=== PATIENT | female | born 1985 | race Caucasian/White ===

== ENCOUNTER 2019-04-12 01:17 | Inpatient (IN) | payer BC, SELFPAY ==
[2019-04-12] VITALS (11 sets, daily range): BP systolic 102–137; BP diastolic 55–82; PULSE 67–96; RESP 14–16; TEMP 36.4–37.2; O2SAT 97–100; BMI 23.2; BMI 22.6; BMI 22.7
--- NOTE | 2019-04-12 01:30 | CT_ITS ---
STUDY: CT ABDOMEN AND PELVIS WITHOUT CONTRAST REASON FOR EXAM: Female, 33 years old. Right flank pain. Dysuria. RADIATION DOSAGE (If Supplied By Facility): CTDIvol = ( 6.11 ) mGy, DLP = ( 282.52 ) mGycm TECHNIQUE: Transaxial images were obtained from the dome of the diaphragm to the symphysis pubis without oral contrast, and without intravenous contrast. Sagittal and coronal images were reconstructed. Individualized dose optimization techniques were used for this CT. COMPARISON: None. FINDINGS: Mild bibasilar atelectasis The visualized portions of the heart are within normal limits. Normal liver. Normal gallbladder and extrahepatic biliary system. Normal spleen. Normal pancreas. Normal bilateral adrenal glands. Hypoattenuated lesion in the right lower renal pole measuring near water density. To millimeter calculus in the right lower renal pelvis. 2 mm calculus in the left lower renal pelvis. No hydronephrosis. No ureteral calculus. Normal visualized stomach. Normal small intestine. Normal colon. The appendix is visualized and appears normal. Normal abdominal aorta. Normal inferior vena cava. Normal retroperitoneum. Normal urinary bladder. Normal reproductive structures. Trace amount of free fluid in the pelvic cul-de-sac. Normal abdominal wall. Normal osseous structures. CT/Abdomen/Pelvis without Cont IMPRESSION: 1. Nonobstructing bilateral renal calculi measuring 2 mm. 2. Simple appearing right lower renal pole cyst. 3. Small amount of free fluid in pelvic cul-de-sac. Electronically Signed: Cornelius Houston MD at 4:06 EST Tel , Service support ,
--- NOTE | 2019-04-12 01:30 | ED.DCSUM_ITS ---
History of Present Illness Chief Complaint: Flank Pain Narrative: Patient is a 33-year-old female who presents with acute onset right flank pain. This began about 2 hours ago. She rates it as severe 8 out of 10. She is unable to really characterize the pain. It is nonradiating. No anterior abdominal pain. She notes urinary frequency but denies dysuria hematuria. She is concerned she may have a kidney infection. No recent illness. No fevers cough chest pain shortness of breath. No diarrhea. She denies medical history or history of abdominal surgeries. Past Medical History - Allergies and Home Meds Allergies/Adverse Reactions: Allergies codeine Allergy (Verified 04/12/19 01:19) Itching Primary Care Physician: Rustam Garland MD [Primary Care Provider] - Past Medical History: None Smoking Status: Never smoker Review of Systems All systems negative except as indicated General: Denies: Fever Eyes: Denies: Visual changes - bilaterally ENT: Denies: Bilateral ear pain Cardiovascular: Denies: Chest pain Respiratory: Denies: Dyspnea Gastrointestinal: Reports: Nausea, Vomiting. Denies: Abdominal pain Genitourinary: Reports: Frequency, - - Right flank pain. Denies: Dysuria, Hematuria Skin: Denies: Rash Neurological: Denies: Headache Hematologic: Denies: Easy bruising Allergy: Denies: Uticaria Physical Exam Vital Signs/Narrative: Vital Signs Temp Pulse Resp BP Pulse Ox 04/12/19 01:22 97.5 F L 84 16 137/82 H 100 04/12/19 01:18 97.5 F L 84 16 137/82 H 100 Inital Vital Signs reviewed: Yes General: Well nourished Head: Normocephalic Eyes: EOMI ENT: Moist mucous membranes Neck: Supple Cardiovascular: Regular rate, Regular rhythm Respiratory: No distress, CTA bilaterally Abdomen: Soft, Nontender, Nondistended Back: Nontender. Negative for: CVA tenderness Extremities: Nontender Skin: Normal color Neurological: Alert Psychological: Normal affect Diagnostic/Tx/Re-eval Impressions Abdomen/Pelvis CT 04/12/19 01:30 IMPRESSION: 1. Nonobstructing bilateral renal calculi measuring 2 mm. 2. Simple appearing right lower renal pole cyst. 3. Small amount of free fluid in pelvic cul-de-sac. Electronically Signed: Cornelius Houston MD at 4:06 EST Tel , Service support , 04/12/19 01:30 Abdomen/Pelvis without Cont [CT] Stat Laboratory Results 04/12/19 04/12/19 04/12/19 01:35 01:35 01:35 WBC 18.9 H RBC 4.16 L Hgb 12.2 Hct 37.6 MCV 90.4 MCH 29.3 MCHC 32.4 RDW Std Deviation 47.1 H RDW Coeff of Amparo 14.2 Plt Count 334 MPV 9.1 Immature Gran % (Auto) 0.500 Neut % (Auto) 70.6 H Lymph % (Auto) 18.3 L [place] % (Auto) 7.1 Eos % (Auto) 3.1 Baso % (Auto) 0.4 Absolute Neuts (auto) 13.3 H Absolute Lymphs (auto) 3.46 Nucleated RBC % 0 Sodium 144 Potassium 3.4 L Chloride 109 H Carbon Dioxide 29.0 Anion Gap 6 BUN 8 Creatinine 0.62 Estim Creat Clear Calc 98.30 Est GFR (MDRD) Af Amer 141 Est GFR (MDRD) Non-Af 117 BUN/Creatinine Ratio 12.8 Glucose 81 Calcium 8.6 Serum , Qual Urine Color Yellow Urine Clarity Sl. Cloudy Urine pH 6.0 Ur Specific [place] 1.020 Urine Protein 15 H Urine Glucose (UA) Normal Urine Ketones Negative Urine Occult Blood 10 H Urine Nitrite Negative Urine Bilirubin Negative Urine Urobilinogen Normal Ur Leukocyte Esterase 25 H Urine RBC 0-5 SEEN Urine WBC 5-10 SEEN Ur Squamous Epith Cells 50-100 SEEN Urine Bacteria 0 SEEN Urine Mucus 0 SEEN 04/12/19 01:35 WBC RBC Hgb Hct MCV MCH MCHC RDW Std Deviation RDW Coeff of Amparo Plt Count MPV Immature Gran % (Auto) Neut % (Auto) Lymph % (Auto) [place] % (Auto) Eos % (Auto) Baso % (Auto) Absolute Neuts (auto) Absolute Lymphs (auto) Nucleated RBC % Sodium Potassium Chloride Carbon Dioxide Anion Gap BUN Creatinine Estim Creat Clear Calc Est GFR (MDRD) Af Amer Est GFR (MDRD) Non-Af BUN/Creatinine Ratio Glucose Calcium Serum , Qual NEGATIVE Urine Color Urine Clarity Urine pH Ur Specific [place] Urine Protein Urine Glucose (UA) Urine Ketones Urine Occult Blood Urine Nitrite Urine Bilirubin Urine Urobilinogen Ur Leukocyte Esterase Urine RBC Urine WBC Ur Squamous Epith Cells Urine Bacteria Urine Mucus - Medical Decision Making Patient was initially treated with IV fluids, Toradol, Zofran. Her pain did transiently improve from an 8 out of 10 down to 4 out of 10 and she was able to fall asleep. Laboratory studies as above notable for leukocytosis with a white count of 18.9. Urinalysis is contaminated. This was sent for culture. negative. Ct of the abdomen and pelvis shows a small amount of free fluid in the pelvis as well as bilateral nonobstructive renal calculi. At this time the etiology of her symptoms is unclear. She did require repeat analgesics due to recurrent worsening pain. She was given morphine. She was empirically covered with Rocephin for potential pyelonephritis. I spoke to the hospitalist who agrees to admit. We will also try to repeat a urinalysis for a better specimen. Patient admitted. ED Disposition - Plan for ED Patient: Disposition: Acute Care Hospital [facility] Diagnosis: Flank pain, Leukocytosis, Vomiting Referrals: Rustam Garland MD [Primary Care Provider] -
[2019-04-12] MEDS: 0.9% Normal Saline 1,000 ML 1000 ML IV (01:43)
[2019-04-12] MEDS: Ondansetron 4 MG/2 ML Vial IV ×2 (01:43→07:30)
[2019-04-12] MEDS: Ketorolac 30 MG/ML Syringe IV (01:43)
[2019-04-12 01:47] LABS: Bacteria 0 SEEN /hpf (None Seen); Mucous, Urine 0 SEEN /hpf (<or=2+)
[2019-04-12 01:49] LABS: Absolute Lymphocyte Count 3.46 X10^3/uL (0.83-4.51); Absolute Neutrophil Count 13.3 X10^3/uL (2.0-7.7); Basophil# 0.08 X10^3/uL; Basophil% 0.4 % (0-1); Color, Urine Yellow (Yellow); Eosinophil# 0.58 X10^3/uL; Eosinophils% 3.1 % (0-5); Glucose, Dipstick Normal (Normal); Hematocrit 37.6 % (37-47); Hemoglobin 12.2 g/dL (12.0-15.0); Ketone-Dipstick Negative (Negative); Leukocyte Esterase-Dipstick 25 /ul (Negative); Lymphocyte # 3.46 X10^3/ul (4.0); Lymphocyte % 18.3 % (19-41); Mean Corp Hgb Conc 32.4 g/dL (32-36); Mean Corpuscular Hgb 29.3 pg (27.0-32.0); Mean Corpuscular Volume 90.4 fL (81-99); Mean Platelet Vol. 9.1 fl (6.2-12.0); Monocyte# 1.34 X10^3/uL; Monocyte% 7.1 % (0-10); NRBC Flagged by Analyzer 0 % (0-5); Neutrophil # 13.31 X10^3/uL (2.7-7.7); Neutrophil % 70.6 % (47-70); Nitrite-Dipstick Negative (Negative); Occult Blood-Urine 10 /ul (Negative); Platelet Count 334 K/mm3 (150-450); Protein-Dipstick 15 mg/dl (Negative); RBC Distribution Width CV 14.2 % (11.6-14.6); RBC Distribution Width SD 47.1 fl (35.1-43.9); Red Blood Count 4.16 M/mm3 (4.2-5.4); Urine Bilirubin Dipstick Negative (Negative); Urine Clarity Sl. Cloudy (Clear); Urine Urobilinogen Normal (Normal); White Blood Count 18.9 K/mm3 (4.4-11.0)
[2019-04-12 02:09] LABS: Red Blood Cells-Urine 0-5 SEEN /hpf (0-5); Squamous Epithelial Cells - UA 50-100 SEEN /hpf (5-10); White Blood Cells 5-10 SEEN /hpf (0-5)
[2019-04-12 02:10] LABS: Anion Gap 6 (5-15); BUN 8 mg/dL (7-18); BUN/Creat Ratio 12.8 RATIO (10-20); Calcium,Total 8.6 mg/dL (8.5-10.1); Chloride 109 mmol/L (98-107); Creatinine, Serum 0.62 mg/dL (0.55-1.02); EST Glomerular Filtration Rate 117 mL/min (>60); Est Glom Filt Rate - Afr Amer 141 mL/min (>60); Glucose 81 mg/dL (74-106); Potassium 3.4 mmol/L (3.5-5.1); Sodium Level 144 mmol/L (136-145)
[2019-04-12 02:16] LABS: Pregnancy, Serum, hCG Quali. NEGATIVE Negative (0-9 Nonpreg)
[2019-04-12 02:17] LABS: Internal QC Validated? YES +Cl - CLEAR BKGD
[2019-04-12] MEDS: Morphine 4 MG/ML Syringe IV (04:10)
[2019-04-12] MEDS: Ceftriaxone 1 GM/50 ML BAG IV (04:21)
--- NOTE | 2019-04-12 04:29 | PCM.HP.STD ---
Problem List (1) Acute pyelonephritis Status: Acute History of Present Illness Date of Admission: 04/12/19 Chief Complaint: right flank pain The patient is a 33 year old F with a significant history of pyelonephritis who presented to emergency department with progressively worsening excruciating aching right flank pain that started a day before presentation and progressed to the point that it woke her up from her sleep. Her pain is nonradiating. She denies any aggravating or ameliorating factors. At the emergency department she received some pain medication to help with her pain. Associated with her symptoms is nausea and vomiting. Further she has increased urinary frequency and urgency. She denies dysuria. Past Medical History Medical History: Medical History (Last Reviewed 04/12/19 @ 06:56 by Boyd Dawson MD) Pyelonephritis N12 Allergies codeine Allergy (Verified 04/12/19 01:19) Itching Home Medications: Ambulatory Orders Medication Instructions Recorded NK 04/12/19 Surgical History: no surgical history Lives: Spouse/ Significant Other Smoking Status: Current every day smoker Alcohol: None - *Family History Maternal Family History: Family History (Last Reviewed 04/12/19 @ 06:56 by Boyd Dawson MD) Mother Breast cancer Father Prostate cancer Review of Systems Constitutional: Denies: Chills, Fever, Weight Change HEENT: Denies: Head Aches, Sinus Congestion, Sinus Drainage Cardiovascular: Denies: Chest Pain, Palpitations Respiratory: Denies: Cough, Shortness of breath at rest, Sputum production Gastrointestinal: Reports: Nausea, Vomiting. Denies: Abdominal Pain Genitourinary: Reports: Frequency, Urgency. Denies: Dysuria Musculoskeletal: Denies: Joint Pain, Joint Tenderness Skin: Denies: Rash, Wounds Neurological: Denies: Numbness, Tingling, Focal weakness Psychiatric: Denies: Anxiety, Depression, Homicidal Ideations, Suicidal Ideations Hematologic/ Lymphatic: Denies: Easy Bruising, Easy Bleeding VTE Information - Inpt Only VTE Present on Admission: No VTE Mechan Device Prophylaxis: None VTE Pharm Prophylaxis ordered?: No Reason prophylaxis not ordered:: Treatment Not Indicated - Low risk; encouraged to ambulate Patient Problems: Active and Suspected Problems (Last Updated 04/12/19 @ 05:13 by Boyd Dawson MD) Flank pain (Acute) Leukocytosis (Acute) Vomiting (Acute) Acute pyelonephritis (Acute) - Physical Exam Vitals/I&O's: Vital Signs Temp Pulse Resp BP Pulse Ox 97.5 F L 93 14 120/78 100 04/12/19 01:22 04/12/19 04:14 04/12/19 04:14 04/12/19 04:14 04/12/19 04:14 Oxygen Delivery Method Room Air Weight: 55.8 kg Body Mass Index (BMI) 23.2 Intake and Output for Last 24 Hours 04/10/19 04/11/19 04/12/19 23:59 23:59 23:59 Intake Total 1000 / 1000 Balance 1000 / 1000 General: Alert, Oriented x3, Cooperative HEENT: Atraumatic, PERRLA, EOMI, Normocephalic Neck: Supple, No JVD, Negative Carotid Bruits Lungs: Clear to auscultation, Normal air movement, No rhonchi, No wheeze, No rales Cardiovascular: Regular rate, Normal S1, Normal S2, No murmurs Abdomen: Bowel Sounds Present, Soft, Tender - Right CVA with mild tenderness Extremities: No edema, Capillary Refill Less than 3 Seconds Skin: No rashes, No breakdown Musculoskeletal: No Tenderness to Palpation of Joints or Extremities Neurological: Cranial nerves II-XII grossly intact Psych/Mental Status: Normal Affect, Appropriate Laboratory Results 04/12/19 01:35: WBC 18.9 H, RBC 4.16 L, Hgb 12.2, Hct 37.6, MCV 90.4, MCH 29.3, MCHC 32.4, RDW Std Deviation 47.1 H, RDW Coeff of [place] 14.2, Plt Count 334, MPV 9.1, Immature Gran % (Auto) 0.500, Neut % (Auto) 70.6 H, Lymph % (Auto) 18.3 L, [place] % (Auto) 7.1, Eos % (Auto) 3.1, Baso % (Auto) 0.4, Absolute Neuts (auto) 13.3 H, Absolute Lymphs (auto) 3.46, Nucleated RBC % 0 04/12/19 01:35: Sodium 144, Potassium 3.4 L, Chloride 109 H, Carbon Dioxide 29.0, Anion Gap 6, BUN 8, Creatinine 0.62, Estim Creat Clear Calc 98.30, Est GFR (MDRD) Af Amer 141, Est GFR (MDRD) Non-Af 117, BUN/Creatinine Ratio 12.8, Glucose 81, Calcium 8.6 04/12/19 01:35: Urine Color Yellow, Urine Clarity Sl. Cloudy, Urine pH 6.0, Ur Specific [place] 1.020, Urine Protein 15 H, Urine Glucose (UA) Normal, Urine Ketones Negative, Urine Occult Blood 10 H, Urine Nitrite Negative, Urine Bilirubin Negative, Urine Urobilinogen Normal, Ur Leukocyte Esterase 25 H, Urine RBC 0-5 SEEN, Urine WBC 5-10 SEEN, Ur Squamous Epith Cells 50-100 SEEN, Urine Bacteria 0 SEEN, Urine Mucus 0 SEEN 04/12/19 01:35: Serum , Qual NEGATIVE Current Medications Ceftriaxone Sodium (Rocephin) 1 gm in 50 mls @ 100 mls/hr IV X1 ONE Stop: 04/12/19 04:39 Last Admin: 04/12/19 04:21 Dose: 100 mls/hr Documented by: Assessment/Plan All Active Problems (Last Updated 04/12/19 @ 05:13 by Boyd Dawson MD) Flank pain (Acute) Leukocytosis (Acute) Vomiting (Acute) Acute pyelonephritis (Acute) The patient is a 33 year old F with a significant history of pyelonephritis who presented to emergency department with progressively worsening excruciating aching right flank pain; nausea; vomiting; urinary frequency; urinary urgency; and leukocytosis but with inconsistent urinalysis suspicious for acute pyelonephritis. Acute Pyelonephritis Patient with excruciating right flank pain; previous history of right pyelonephritis; nausea and vomiting and urinary symptoms. Of note urinalysis showed several epithelial cells. Analysis showed some urine protein; urine occult blood. Urine leukocyte esterase was not impressive. Nitrite was negative. We will repeat urinalysis. Straight cath this time around. Abdomen pelvis CT without contrast did not show classic pyelonephritis. It showed nonobstructing bilateral renal calculi measuring 2 mm. Small appearing right lower renal pole cyst. Small amount of free fluid in pelvic cul-de-sac. Of note patient is of small frame that can affect imaging. Has symptoms clinically is concerning for acute pyelonephritis. Patient received ceftriaxone at the emergency department. Continue ceftriaxone. PRN Toradol and PRN morphine for pain. Antiemetics with IV Zofran. We will keep n.p.o. for now. IV hydration. We will consult urology. CBC and BMP Hypokalemia Potassium 3.4; mild Normal saline with potassium. Trend BMP. Tobacco abuse Counseled Nicotine patch ordered. DVT prophylaxis Low risk; encouraged to ambulate. Code Visit OBSV E&M: 36503 Initial observation care L2
[2019-04-12] MEDS: Potassium Chloride 40 MEQ in 0.9% Normal Saline 1,000 ML 75 MEQ IV (05:59)
[2019-04-12] MEDS: 0.9% Saline Lock 10 ML Syringe IV ×4 (06:00→15:55)
--- NOTE | 2019-04-12 06:20 | NURSING ---
Pt instructed twice that we need another urine specimen but she has refused both times.
[2019-04-12] MEDS: Morphine 2 MG/ML Syringe IV ×3 (07:30→15:55)
[2019-04-12] MEDS: 0.9% Normal Saline 1,000 ML 125 ML IV ×3 (08:31→23:25)
--- NOTE | 2019-04-12 10:52 | PN_ITS ---
Progress Note This is a 33 years old female patient presented to the emergency because of right flank pain, found to have acute cystitis and probable acute toney lonephritis. Today, she is feeling better, right flank pain is improving. Denied urinary symptoms. No fever or chills. No evidence of sepsis or severe sepsis. CT scan abdomen and pelvis without contrast revealed nonobstructing bilateral renal calculi measuring 2 mm, otherwise unremarkable. She is on IV Rocephin and IV fluids. Plan to increase IV Rocephin to 2 g every 24 hours, repeat CBC and BMP tomorrow morning. STROKE Vital Signs/Narrative: Vital Signs Temp Pulse Resp BP Pulse Ox 04/12/19 08:06 98.4 F 89 14 122/75 H 98
--- NOTE | 2019-04-12 15:03 | CASEMGMT ---
RN CM Assessment Introduced role of RN CM to patient and family at bedside.? Patient is alert, oriented and able?to participate in RN CM Assessment. ?Care providers, pharmacy, and demographics verified. Presentation: Worsening Rt flank pain, N/V Admit Dx: Acute Pyelonephritis Re-Admit: No Barriers/Issues: None PCP: Dada Specialists: None Preferred [facility] Insurance: [place] Rx Benefit: Yes? ?LNOK: Duy Walker LW/HPOA: None, declines offered information or services on this admission. Aware can return as an outpatient to complete with the dept Living Arrangements:? Lives with her in a 2SH, Bedroom on [address], no steps to enter home ADL?s: Independent with ambulation and ADLs Transportation: Patient drives DME: None HHC: None SNF: None Goal: Home and does not think will have any needs. Denies any questions, issues or concerns with DC planning at this time. Aware CM remains available for any emerging needs. DC PLAN: Home with no needs identified at this time. Butch Thompson RNCM
[2019-04-12] MEDS: Ketorolac 15 MG/ML Vial IV (21:01)
[2019-04-13 02:18] VITALS: BP 131/84; PULSE 94; RESP 16; TEMP 37.1; O2SAT 98
[2019-04-13] MEDS: Morphine 2 MG/ML Syringe IV (02:21)
[2019-04-13] MEDS: Ketorolac 15 MG/ML Vial IV (03:47)
[2019-04-13] MEDS: Ondansetron 4 MG/2 ML Vial IV (03:51)
[2019-04-13 06:23] LABS: Absolute Lymphocyte Count 1.83 X10^3/uL (0.83-4.51); Absolute Neutrophil Count 9.3 X10^3/uL (2.0-7.7); Basophil# 0.03 X10^3/uL; Basophil% 0.2 % (0-1); Eosinophil# 0.27 X10^3/uL; Eosinophils% 2.2 % (0-5); Hematocrit 31.9 % (37-47); Hemoglobin 10.3 g/dL (12.0-15.0); Lymphocyte # 1.83 X10^3/ul (4.0); Lymphocyte % 14.6 % (19-41); Mean Corp Hgb Conc 32.3 g/dL (32-36); Mean Corpuscular Hgb 29.3 pg (27.0-32.0); Mean Corpuscular Volume 90.9 fL (81-99); Mean Platelet Vol. 9.8 fl (6.2-12.0); Monocyte# 0.97 X10^3/uL; Monocyte% 7.8 % (0-10); NRBC Flagged by Analyzer 0 % (0-5); Neutrophil # 9.34 X10^3/uL (2.7-7.7); Neutrophil % 74.7 % (47-70); Platelet Count 234 K/mm3 (150-450); RBC Distribution Width CV 14.1 % (11.6-14.6); RBC Distribution Width SD 47.1 fl (35.1-43.9); Red Blood Count 3.51 M/mm3 (4.2-5.4); White Blood Count 12.5 K/mm3 (4.4-11.0)
[2019-04-13 06:59] LABS: Anion Gap 4 (5-15); BUN 6 mg/dL (7-18); BUN/Creat Ratio 14.1 RATIO (10-20); Calcium,Total 7.9 mg/dL (8.5-10.1); Chloride 110 mmol/L (98-107); Creatinine, Serum 0.43 mg/dL (0.55-1.02); EST Glomerular Filtration Rate 181 mL/min (>60); Est Glom Filt Rate - Afr Amer 220 mL/min (>60); Estimated Creatinine Clearance 141.73 ml/min; Glucose 92 mg/dL (74-106); Potassium 3.8 mmol/L (3.5-5.1); Sodium Level 140 mmol/L (136-145)
[2019-04-13] MEDS: 0.9% Normal Saline 1,000 ML 125 ML IV (07:27)
[2019-04-13 08:15] VITALS: BP 115/71; PULSE 89; RESP 20; TEMP 36.8; O2SAT 100
--- NOTE | 2019-04-13 09:37 | DCINST_ITS ---
- Discharge Diagnoses Current Active Problems: Current Active and Chronic Problems (Last Reviewed 04/12/19 @ 06:56 by Boyd Dawson MD) Flank pain (Acute) Leukocytosis (Acute) Vomiting (Acute) Acute pyelonephritis (Acute) You will use the following diet at home:: Regular Your food should be the consistency of: Regular Discharge Activity: Return to Normal Activity Weight Bearing Status: Full weight bearing Call your doctor if you observe: Fever of 101 or Higher, Shortness of breath, Dizziness, Fainting spells, Chest pain, Increased palpitations (irregular heartbeat), Uncontrolled pain Allergies/Adverse Reactions: Allergies codeine Allergy (Verified 04/12/19 01:19) Itching Medications to take at Discharge Ketorolac [Toradol] 10 mg PO Q8H PRN PRN #10 tab 04/13/19 levoFLOXacin tablet [Levaquin tablet] 750 mg PO DAILY #5 tab 04/13/19 The following prescriptions were given: levoFLOXacin tablet [Levaquin tablet] 750 mg PO DAILY #5 tab Transmission Status: Pending to [facility] [address] Ketorolac [Toradol] 10 mg PO Q8H PRN PRN #10 tab PRN Reason: Flank pain Transmission Status: Pending to [facility] Primary Care Physician: Rustam Garland MD [Primary Care Provider] - Please follow up with your Primary Care Physician in: 1-2 WEEKS. Test Results: Test results from this visit will be discussed in further detail at your follow- up appointment, if applicable.
[2019-04-13 11:20] VITALS: BP 127/86; PULSE 80; RESP 20; TEMP 36.9; O2SAT 95
--- NOTE | 2019-04-13 11:58 | DS.PCM_ITS ---
Discharge Date and Diagnosis Date of Admission: 04/12/19 Date of Discharge: 04/13/19 - Primary Discharge Diagnosis #1 acute cystitis. #2 right renal colic with probable acute pyelonephritis. Hospital Course and Treatment Imaging Results: Clinical Impression(s) from Imaging Studies Abdomen/Pelvis CT 04/12/19 01:30 IMPRESSION: 1. Nonobstructing bilateral renal calculi measuring 2 mm. 2. Simple appearing right lower renal pole cyst. 3. Small amount of free fluid in pelvic cul-de-sac. Electronically Signed: Cornelius Houston MD at 4:06 EST Tel , Service support , Operations: None Procedures: None Summary of Care Provided: Patient seen and examined on the day of discharge and appeared to be stable to be discharged home. Right flank pain improved. She has been afebrile, no urinary complaints except frequency because of IV fluids. Her vital signs are stable. The patient is a 33 year old F patient presented to the emergency room because of right flank pain associated with urinary frequency and she was found to have acute cystitis with probable acute pyonephritis. Urinalysis revealed cloudy urine which was negative for nitrite, 25 leukocyte esterase and there was 5-10 WBCs but no bacteria. CT scan abdomen and pelvis without contrast revealed nonobstructing bilateral kidney stones measuring 2 mm without evidence of hydronephrosis or hydroureter and there was no evidence of perinephric stranding. On admission, patient did have significant leukocytosis but she was afebrile. She was treated with IV Rocephin, IV fluids and IV pain medications. Her symptoms improved as well as leukocytosis and she remained afebrile throughout admission. WBC count went down from 18,900 down to 12,500. Urine culture was pending at the time of discharge. Patient felt better. She was discharged home in a stable condition, discharged on Levaquin 750 mg p.o. daily for 5 days, Toradol as needed for pain, recommended follow-up with PCP in 1 to 2 weeks. - Physical Exam Vitals/I&O's: Vital Signs Temp Pulse Resp BP Pulse Ox 98.4 F 80 20 H 127/86 H 95 04/13/19 11:20 04/13/19 11:20 04/13/19 11:20 04/13/19 11:20 04/13/19 11:20 Oxygen Delivery Method Room Air Weight: 120 lb Body Mass Index (BMI) 22.6 Intake and Output for Last 24 Hours 04/11/19 04/12/19 04/13/19 23:59 23:59 23:59 Intake Total 3490.00 / 4540.00 2885.42 / 2885.42 Output Total 1200 / 2400 2400 / 2400 Balance 2290.00 / 2140.00 485.42 / 485.42 General: Alert, Oriented x3, Cooperative, No apparent distress HEENT: Atraumatic, PERRLA, EOMI, Normocephalic Oral: Moist Mucosa, No Gingival or Mucosal Lesions/ Ulcerations Neck: Supple, No JVD, Negative Carotid Bruits, Trachea Midline, Thyroid Normal Size and Texture Lungs: Clear to auscultation, Normal air movement, No rhonchi, No wheeze, No rales Cardiovascular: Regular rate, Regular Rhythm, Normal S1, Normal S2 Abdomen: Bowel Sounds Present, Soft, Non Tender, Non-Distended, No Hepato- splenomegaly Extremities: No clubbing, No cyanosis, No edema Skin: No rashes, No breakdown Lymphatic: No Cervical, Supraclavicular, or Inguinal Adenopathy Neurological: Cranial nerves II-XII grossly intact, Neuro grossly intact Psych/Mental Status: Normal Affect, Appropriate Laboratory Results 04/13/19 04:40: WBC 12.5 H, RBC 3.51 L, Hgb 10.3 L, Hct 31.9 L, MCV 90.9, MCH 29.3, MCHC 32.3, RDW Std Deviation 47.1 H, RDW Coeff of Amparo 14.1, Plt Count 234, MPV 9.8, Immature Gran % (Auto) 0.500, Neut % (Auto) 74.7 H, Lymph % (Auto) 14.6 L, [place] % (Auto) 7.8, Eos % (Auto) 2.2, Baso % (Auto) 0.2, Absolute Neuts (auto) 9.3 H, Absolute Lymphs (auto) 1.83, Nucleated RBC % 0 04/13/19 04:40: Sodium 140, Potassium 3.8, Chloride 110 H, Carbon Dioxide 26.0, Anion Gap 4 L, BUN 6 L, Creatinine 0.43 L, Estim Creat Clear Calc 141.73, Est GFR (MDRD) Af Amer 220, Est GFR (MDRD) Non-Af 181, BUN/Creatinine Ratio 14.1, Glucose 92, Calcium 7.9 L Discharge Activity: Return to Normal Activity Weight Bearing Status: Full weight bearing Call your doctor if you observe: Fever of 101 or Higher, Shortness of breath, Dizziness, Fainting spells, Chest pain, Increased palpitations (irregular he artbeat), Uncontrolled pain Home Medications: Medications to take at Discharge Ketorolac [Toradol] 10 mg PO Q8H PRN PRN #10 tab 04/13/19 levoFLOXacin tablet [Levaquin tablet] 750 mg PO DAILY #5 tab 04/13/19 Following Prescrptions Were Given to Patient: levoFLOXacin tablet [Levaquin tablet] 750 mg PO DAILY #5 tab Transmission Status: Received by [facility] [address] [address] Ketorolac [Toradol] 10 mg PO Q8H PRN PRN #10 tab PRN Reason: Flank pain Transmission Status: Received by [facility] Primary Care Physician: Rustam Garland MD [Primary Care Provider] - Please follow up with your Primary Care Physician in: 1-2 WEEKS. Disposition: Home Minutes spent on discharge:: 26 Patient Condition:: Stable Medical Necessity - Tobacco Use Smoking Status: Current every day smoker Tobacco Use: Cigarettes Meaningful Use Info Meaningful Use Diagnoses (Choose all that apply): None applicable Code Visit Inpatient E&M: 12403 Disch Hosp
== END 2019-04-13 11:25 | disposition home or self-care (01) | DRG 690 ==
LOC: ED 04:37 → MS3 05:08
PROVIDERS: Admitting Provider Hospitalist; Emergency Provider Emergency Medicine; Family Provider Preventive Medicine Occupational Medicine; PCP Family Medicine; Visit Provider Hospitalist
DX: N30.00 Acute cystitis without hematuria (principal); N10 Acute pyelonephritis; E87.6 Hypokalemia; N20.0 Calculus of kidney
CPT/HCPCS: 36415; 74176; 80048; 81001; 84703; 85025; 87077; 87086; 87088; 87186; 99284; J7030; A4216; J0696; J2405

== ENCOUNTER 2021-05-01 16:16 | Emergency (ER) | payer BC, SELFPAY ==
[2021-05-01 16:16] VITALS: BP 113/89; PULSE 98; RESP 16; TEMP 36.3; O2SAT 100; BMI 22.6
[2021-05-01 18:05] LABS: Absolute Lymphocyte Count 2.76 X10^3/uL (0.83-4.51); Basophil# 0.06 X10^3/uL; Basophil% 0.4 % (0-1); Eosinophil# 0.24 X10^3/uL; Eosinophils% 1.6 % (0-5); Hematocrit 41.4 % (37-47); Hemoglobin 13.5 g/dL (12.0-15.0); Lymphocyte # 2.76 X10^3/ul (0.83-4.51); Lymphocyte % 18.5 % (19-41); Mean Corp Hgb Conc 32.6 g/dL (32-36); Mean Platelet Vol. 9.6 fl (6.2-12.0); Monocyte# 0.76 X10^3/uL; Monocyte% 5.1 % (0-10); NRBC Flagged by Analyzer 0 % (0-5); Platelet Count 368 K/mm3 (150-450); RBC Distribution Width CV 14.5 % (11.6-14.6); Red Blood Count 4.65 M/mm3 (4.2-5.4); White Blood Count 14.9 K/mm3 (4.4-11.0)
[2021-05-01 18:34] LABS: Anion Gap 5 (5-15); BUN 13 mg/dL (7-18); BUN/Creat Ratio 20.7 RATIO (10-20); Calcium,Total 9.2 mg/dL (8.5-10.1); Chloride 109 mmol/L (98-107); Creatinine, Serum 0.63 mg/dL (0.55-1.02); EST Glomerular Filtration Rate 115 mL/min (>60); Est Glom Filt Rate - Afr Amer 139 mL/min (>60); Estimated Creatinine Clearance 94.95 ml/min; Glucose 88 mg/dL (74-106); Sodium Level 140 mmol/L (136-145)
--- NOTE | 2021-05-01 19:59 | CT_ITS ---
INDICATION: LLQ pain EXAMINATION: CT Abdomen And Pelvis W/ Contrast Injection TECHNIQUE: Helically acquired images were obtained of the abdomen and pelvis after IV contrast. A radiation dose optimization technique was used for this scan. IV Contrast dosage and agent: IV 75mL Isovue-370 Oral contrast: None. COMPARISON: None. FINDINGS: Visualized lung bases: Unremarkable Liver: Focal fatty infiltration near the falciform ligament. Gallbladder: Unremarkable Spleen: Unremarkable Pancreas: Unremarkable Adrenal Glands: Unremarkable Kidneys: Unremarkable Vasculature: Unremarkable GI Tract: Mild bowel wall thickening of the splenic flexure of the colon with surrounding mesenteric fat stranding. Lymphadenopathy: None Peritoneum: No ascites. Bladder: Unremarkable Reproductive organs: Unremarkable Bones/Soft tissues: No suspicious osseous or soft tissue lesions CT/Abdomen/Pelvis W IV Cont ONLY IMPRESSION: Mild bowel wall thickening of the splenic flexure of the colon with surrounding inflammatory changes. This could represent infectious or inflammatory colitis. Electronically Signed: Inocente Hrenandez MD at 22:44 EST Tel , Service support ,
--- NOTE | 2021-05-01 20:00 | EDS_ITS ---
HPI HPI - GI History of Present Illness Chief Complaint: GI Bleed Informant: patient Narrative Narrative: Patient's had a day or 2 where she has had some nausea. She vomited a couple times but just mild. She states she has had some abdominal cramping but really no pain. But she has passed some blood in stools about 3 maybe 4 times. Subjective fever but when she took her temperature was less than 100. No history of bowels or abdominal surgery. No history of Crohn's or ulcerative colitis in her or the family. She has no vaginal bleeding. No dysuria urgency or frequency. Nothing really makes her symptoms better or worse. She has never had this before. [facility] Medical History Pyelonephritis Home Medications amoxicillin-pot clavulanate [Augmentin] 1 tab PO BID #20 tab 05/01/21 [Rx Last Taken Unknown] bupropion HCl 300 mg PO DAILY 05/01/21 [History Last Taken Unknown] dextroamphetamine-amphetamine 30 mg PO DAILY 05/01/21 [History Last Taken Unknown] ondansetron 4 mg PO Q8H PRN #10 tab 05/01/21 [Rx Last Taken Unknown] Allergy/AdvReac Type Severity Reaction Status Date / Time codeine Allergy Itching Verified 05/01/21 16:20 Family History Mother Breast cancer Father Prostate cancer Social History Smoking Status: Current every day smoker tobacco type: cigarettes ROS ROS ED Constitutional Constitutional ED: Reports chills, fever(s), subjective and other Details: Patient states she has had fevers and chills and felt hot and cold. Highest temperature was actually about 99.7 ENT ENT ED: Denies rhinorrhea or sore throat Cardiovascular Cardiovascular: Denies chest pain Respiratory/Chest Respiratory/Chest: Denies cough or dyspnea Gastrointestinal Gastrointestinal: Reports abdominal pain, diarrhea, nausea and vomiting Genitourinary Genitourinary ED: Reports other Details: No vaginal discharge or bleeding. ; Denies dysuria or hematuria Musculoskeletal Musculoskeletal: Denies back pain or myalgias Integumentary Denies rash Neurologic Neurologic: Denies headache(s) Psychiatric Psychiatric: Denies depression Endocrine Endocrinology: Denies polyuria Hematologic/Lymphatic Hematologic/Lymphatic: Denies easy bleeding or easy bruising Allergic/Immunologic Allergic/Immunologic ED: Denies mouth swelling or urticaria EXAM Physical Exam Const Vital Signs: 05/01/21 16:16 05/01/21 20:36 05/01/21 21:20 Temperature 97.3 F L Temperature Source Temporal Pulse Rate 98 62 84 Respiratory Rate 16 17 16 Blood Pressure 113/89 H 135/74 H 125/81 H Blood Pressure Mean 97 94 95 Pulse Ox 100 98 Oxygen Delivery Method Room Air Room Air Patient is smiling and laughing with significant other in the room. She does not look pale. She does not look toxic at all. Positive well nourished and well developed General Appearance ED: well developed and NAD; Negative for pallor HEENT normocephalic and atraumatic Eyes General Eye ED: Negative for pale conjunctiva or scleral icterus Neck no JVD Resp normal respiratory effort and clear to auscultation bilaterally Cardio regular rate and regular rhythm GI non-distended GI Narrative: Does have very mild tenderness at the left lower quadrant. No rebound or guarding. Auscultation: normoactive bowel sounds Palpation: soft and tender Back/Spine no CVA tenderness Extremity full ROM Neuro Sensorium / Orientation: alert and oriented to person Psych mental status grossly normal Skin General Skin Exam: Negative for pallor Rashes: no rashes MDM MDM MDM Narrative Medical decision making narrative: Patient's white count was elevated. Hemoglobin is normal. Electrolytes showed no marked abnormalities. Urine did not show signs of infection. was negative. Because of her slight white count and subjective fevers we did do CT scan. It showed some inflammatory changes near the splenic flexure. I think the colitis is likely the source of her blood in the stool. She is also had some fever. We will treat this with antibiotics. She states she has tolerated amoxicillin in the past. We will also get her meds for nausea. We discussed that if he gets worse, she has more bleeding, fevers, vomiting or other concerns she still may need to come in the hospital but we would like to try her as outpatient therapy at this time. She is overall healthy person with normal hemoglobin. Lab Data Attestation: I reviewed the patient's lab results. Labs: Laboratory Results - last 24 hr 05/01/21 05/01/21 05/01/21 17:56 17:56 20:10 WBC 14.9 H RBC 4.65 Hgb 13.5 Hct 41.4 MCV 89.0 MCH 29.0 MCHC 32.6 RDW Std Deviation 47.0 H RDW Coeff of Amparo 14.5 Plt Count 368 MPV 9.6 Immature Gran % (Auto) 0.400 Neut % (Auto) 74.0 H Lymph % (Auto) 18.5 L [place] % (Auto) 5.1 Eos % (Auto) 1.6 Baso % (Auto) 0.4 Absolute Neuts (auto) 11.0 H Absolute Lymphs (auto) 2.76 Nucleated RBC % 0 Sodium 140 Potassium 4.0 Chloride 109 H Carbon Dioxide 26.0 Anion Gap 5 BUN 13 Creatinine 0.63 Estim Creat Clear Calc 94.95 Est GFR (MDRD) Af Amer 139 Est GFR (MDRD) Non-Af 115 BUN/Creatinine Ratio 20.7 H Glucose 88 Calcium 9.2 Serum , Qual Urine Color Yellow Urine Clarity Clear Urine pH 6.0 Ur Specific [place] 1.030 Urine Protein 15 H Urine Glucose (UA) Normal Urine Ketones 15 H Urine Occult Blood 25 H Urine Nitrite Negative Urine Bilirubin Negative Urine Urobilinogen Normal Ur Leukocyte Esterase 25 H Urine RBC 0 SEEN Urine WBC 0-5 SEEN Ur Squamous Epith Cells 5-10 SEEN Urine Bacteria 1+ Urine Mucus 2+ 05/01/21 20:55 WBC RBC Hgb Hct MCV MCH MCHC RDW Std Deviation RDW Coeff of Amparo Plt Count MPV Immature Gran % (Auto) Neut % (Auto) Lymph % (Auto) [place] % (Auto) Eos % (Auto) Baso % (Auto) Absolute Neuts (auto) Absolute Lymphs (auto) Nucleated RBC % Sodium Potassium Chloride Carbon Dioxide Anion Gap BUN Creatinine Estim Creat Clear Calc Est GFR (MDRD) Af Amer Est GFR (MDRD) Non-Af BUN/Creatinine Ratio Glucose Calcium Serum , Qual NEGATIVE Urine Color Urine Clarity Urine pH Ur Specific [place] Urine Protein Urine Glucose (UA) Urine Ketones Urine Occult Blood Urine Nitrite Urine Bilirubin Urine Urobilinogen Ur Leukocyte Esterase Urine RBC Urine WBC Ur Squamous Epith Cells Urine Bacteria Urine Mucus Radiography Diagnostic Testing: Clinical Impression(s) from Imaging Studies Abdomen/Pelvis CT 05/01/21 19:59 IMPRESSION: Mild bowel wall thickening of the splenic flexure of the colon with surrounding inflammatory changes. This could represent infectious or inflammatory colitis. Electronically Signed: Inocente Hernandez MD at 22:44 EST Tel , Service support , Discharge Plan Triage Chief Complaint: GI Bleed ED Provider: Paxton Nair Dx/Rx/DC Orders Clinical Impression: Colitis, Hematochezia Instructions: ED Understanding Colitis Prescriptions: New amoxicillin-pot clavulanate [Augmentin] 875-125 mg tablet 1 tab PO BID Qty: 20 RF: 0 ondansetron 4 mg tablet,disintegrating 4 mg PO Q8H PRN (Reason: nausea and vomiting) Qty: 10 RF: 0 No Action bupropion HCl 150 mg tablet sustained-release 12 hr 300 mg PO DAILY RF: 0 dextroamphetamine-amphetamine 30 mg tablet 30 mg PO DAILY RF: 0 Primary Care Provider: Rustam Garland Referrals: Rustam Garland MD [Primary Care Provider] - 3-5 Days if not improving Disposition Disposition: Home, Self Care
[2021-05-01 20:36] VITALS: BP 135/74; PULSE 62; RESP 17; O2SAT 98
[2021-05-01] MEDS: 0.9% Normal Saline 1,000 ML 999 ML IV (20:37)
[2021-05-01 20:47] LABS: Red Blood Cells-Urine 0 SEEN /hpf (0-5)
[2021-05-01 20:56] LABS: Color, Urine Yellow (Yellow); Glucose, Dipstick Normal (Normal); Ketone-Dipstick 15 mg/dl (Negative); Leukocyte Esterase-Dipstick 25 /ul (Negative); Nitrite-Dipstick Negative (Negative); Occult Blood-Urine 25 /ul (Negative); Protein-Dipstick 15 mg/dl (Negative); Urine Bilirubin Dipstick Negative (Negative); Urine Clarity Clear (Clear); Urine Urobilinogen Normal (Normal)
[2021-05-01 21:13] LABS: Bacteria 1+ /hpf (None Seen); Mucous, Urine 2+ /hpf (<or=2+); Squamous Epithelial Cells - UA 5-10 SEEN /hpf (5-10); White Blood Cells 0-5 SEEN /hpf (0-5)
[2021-05-01] MEDS: Ondansetron 4 MG/2 ML Vial IV (21:15)
[2021-05-01 21:20] VITALS: BP 125/81; PULSE 84; RESP 16
[2021-05-01 21:24] LABS: Internal QC Validated? YES +Cl - CLEAR BKGD; Pregnancy, Serum, hCG Quali. NEGATIVE Negative
[2021-05-01] MEDS: Amox/Clavulanate 875 MG Tablet PO (23:32)
[2021-05-01 23:37] VITALS: BP 132/85; PULSE 84; RESP 18; TEMP 36.7; O2SAT 99
== END 2021-05-01 23:38 | disposition home or self-care (01) ==
PROVIDERS: Emergency Provider Emergency Medicine; PCP Family Medicine; Visit Provider Emergency Medicine
DX: K52.9 Noninfective gastroenteritis and colitis, unspecified (principal); K92.1 Melena; D72.829 Elevated white blood cell count, unspecified; F17.210 Nicotine dependence, cigarettes, uncomplicated; Z79.899 Other long term (current) drug therapy
CPT/HCPCS: 74177; 80048; 81001; 84703; 85025; 96361; 96374; 99284; J7030; Q9967; A4216; J2405

== ENCOUNTER 2021-12-30 19:15 | Inpatient (IN) | payer BC, OTHER, SELFPAY ==
[2021-12-30] VITALS (80 sets, daily range): BP systolic 134–199; BP diastolic 65–103; PULSE 68–103; RESP 16; TEMP 36.2–36.8; O2SAT 94–99; BMI 33.0
[2021-12-30 16:33] LABS: Hematocrit 32.5 % (37-47); Hemoglobin 10.9 g/dL (12.0-15.0); Mean Corp Hgb Conc 33.5 g/dL (32-36); Mean Corpuscular Hgb 31.1 pg (27.0-32.0); Mean Corpuscular Volume 92.9 fL (81-99); Mean Platelet Vol. 10.6 fl (6.2-12.0); Platelet Count 298 K/mm3 (150-450); RBC Distribution Width CV 14.9 % (11.6-14.6); RBC Distribution Width SD 50.7 fl (35.1-43.9); White Blood Count 18.6 K/mm3 (4.4-11.0)
[2021-12-30 16:46] LABS: Protein, Urine (Random) 20.6 mg/dL (<11.9); Protein:Creat Ratio 436 mg/g CRE (0-200)
[2021-12-30 16:51] LABS: AST(SGOT) 18 U/L (15-37); Alanine Aminotransfer ALT/SGPT 20 U/L (13-56); EST Glomerular Filtration Rate 122 mL/min (>60); Est Glom Filt Rate - Afr Amer 147 mL/min (>60); Uric Acid 4.8 mg/dL (2.6-6.0)
--- NOTE | 2021-12-30 17:30 | CASEMGMT ---
Social Work Assessment Labor and Delivery Unit Date of Referral: Time of Referral: 1699 Referred By: lumber handler Kim P.; Dr. Kasey Vinson Date of Intervention: 12.30.2021 Time of Intervention: 1699 Reason for Referral: Possible adoption - Consult by lumber handler Kim P. who reports the OBGYN shared this patient is considering adoption for the baby. History obtained from: patient, mother of baby (MOB) Household composition:MOB reports to have a home in [facility]. Indicates to spend time with calista Walker in [facility]. Patient's parent/guardian status: MOB is a 36 year old female. Reports involvement with calista Gordillo, but denies that Duy is the biological father to the unborn . No disclosure of name of the biological father. MOB denies any safety concerns or abuse issues with Duy, or from anyone in SILVER's life at this point. Denies any form of trauma surrounding conception of infant. Medical History: Chart indicates MOB is G2, P0 to 1. Presenting this admission for preeclampsia. Educational Status: No reported issues with reading or writing. Behavioral Health Issues: Mental Health History: Denies any history of depression, anxiety, or mood issues. No reports of SI/HI. Substance Use History: None reported. Drug Screens: None noted in chart. Family/Social Stressors: Unplanned . MOB not disclosing the father of baby. MOB reports intent and commitment to proceed with adoption plan for baby. Support Systems: Reports to have good support from Duy, MOB's parents, family, and friends. MOB reports to be working with [employer] [facility] out [facility]. Ana Maria is the hollow handle bench worker and Maria Dolores Ray is the estate planning attorney assigned to represent MOB. MOB denies any concerns with support system. ASSESSMENT: Met with MOB introducing to self and role, exploring MOB's intent to parent or make an adoption plan for the baby. MOB reports intent to make adoption plan, and to have been working with [employer] out of [place]. Explored with MOB whether a plan was worked on with [employer] and MOB confirms this was done at least a month ago. This tech writer has had no communication from said agency to date, and not information form care records. Educated MOB to need to complete [facility] plan/adoption plan form. MOB agreeable and completed form with this tech writer. Educated MOB that if MOB stays and delivers social work will follow back up for some additional forms an to check in on how MOB is doing. MOB voiced clearly that wants the prospective adoptive parents to be able to make decisions for the baby while the baby is in the hospital, even decisions regarding circumcision. Educated MOB that staff is present to support MOB's wishes, and that technically MOB is the decision maker on how course of stay will be managed. MOB expressed understanding. Summary of /adoption plan: Refer to form filled out and signed by MOB, found on paper chart. MOB does not want prospective adoptive parents in the labor room, but would like for the baby to be take to the adoptive parents as soon as possible after delivery, to start bonding process. MOB declines to see baby, hold baby, or have interactions with baby. MOB declines mementos but agreeable for adoptive parents to have usual mementos offered to parents. MOB reports this is an open adoption with all parties knowing each others first and last names. Spoke with lumber handler as well as handoff to Sunday clinical social worker. PLAN: Intentions for an adoption plan. Social work to follow. No other services requested or indicated. -DEBRA Garcia, [place]
[2021-12-30] MEDS: Betamethasone/Betamethasone 30 MG/5 ML Vial 12 MG IM (17:45)
[2021-12-30] MEDS: Lactated Ringers 1,000 ML 15 ML IV (19:25)
--- NOTE | 2021-12-30 19:25 | PCM.HP.OB ---
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 Pyelonephritis Home Medications amoxicillin 875 mg-potassium clavulanate 125 mg tablet (Augmentin) 1 tab PO BID #20 tabs 05/01/21 [Rx Last Taken Unknown] bupropion HCl 150 mg tablet,12 hr sustained-release 300 mg PO DAILY 05/01/21 [History Last Taken Unknown] dextroamphetamine-amphetamine 30 mg tablet 30 mg PO DAILY 05/01/21 [History Last Taken 12/30/21] ondansetron 4 mg disintegrating tablet 4 mg PO Q8H PRN nausea and vomiting #10 tabs 05/01/21 [Rx Last Taken Unknown] Iron (ferrous sulfate) 12/30/21 [History Last Taken Unknown] [id number] 1 mg tablet tab PO 12/30/21 [History Last Taken Unknown] Allergy/AdvReac Type Severity Reaction Status Date / Time codeine Allergy Itching Verified 05/01/21 16:20 Family History Mother Breast cancer Father Prostate cancer Social History Smoking Status: Current every day smoker tobacco type: cigarettes Vital Signs Vital Signs Vital Signs: 12/30/21 16:20 12/30/21 16:20 12/30/21 16:20 Temperature Temperature Source Tympanic Pulse Rate 86 Blood Pressure BP Systolic BP Diastolic Pulse Ox 99 12/30/21 16:20 12/30/21 16:20 12/30/21 16:27 Temperature 98.2 F Temperature Source Pulse Rate Blood Pressure 159/89 H BP Systolic 159 BP Diastolic 89 Pulse Ox 99 12/30/21 16:27 12/30/21 16:42 12/30/21 16:42 Temperature Temperature Source Pulse Rate 86 85 Blood Pressure 160/89 H BP Systolic 160 BP Diastolic 89 Pulse Ox 12/30/21 17:02 12/30/21 17:02 12/30/21 17:12 Temperature Temperature Source Pulse Rate 80 Blood Pressure 154/86 H 151/89 H BP Systolic 154 151 BP Diastolic 86 89 Pulse Ox 12/30/21 17:12 12/30/21 17:27 12/30/21 17:27 Temperature Temperature Source Pulse Rate 91 84 Blood Pressure 154/103 H BP Systolic 154 BP Diastolic 103 Pulse Ox 12/30/21 17:44 12/30/21 17:44 12/30/21 17:57 Temperature Temperature Source Pulse Rate 88 Blood Pressure 145/78 H 144/74 H BP Systolic 145 144 BP Diastolic 78 74 Pulse Ox 12/30/21 17:57 12/30/21 18:12 12/30/21 18:12 Temperature Temperature Source Pulse Rate 82 79 Blood Pressure 146/67 H BP Systolic 146 BP Diastolic 67 Pulse Ox 12/30/21 18:27 12/30/21 18:27 12/30/21 18:42 Temperature Temperature Source Pulse Rate 75 Blood Pressure 155/75 H 156/81 H BP Systolic 155 156 BP Diastolic 75 81 Pulse Ox 12/30/21 18:42 12/30/21 18:57 12/30/21 18:57 Temperature Temperature Source Pulse Rate 82 82 Blood Pressure 168/91 H BP Systolic 168 BP Diastolic 91 Pulse Ox 12/30/21 19:00 12/30/21 19:00 12/30/21 19:11 Temperature Temperature Source Pulse Rate 93 Blood Pressure 180/86 H 180/87 H BP Systolic 180 180 BP Diastolic 86 87 Pulse Ox 12/30/21 19:11 12/30/21 19:13 12/30/21 19:13 Temperature Temperature Source Pulse Rate 93 103 H Blood Pressure 199/81 H BP Systolic 199 BP Diastolic 81 Pulse Ox Weight Weight: 175 lb Body Mass Index (BMI) 33.0 Physical Exam Const alert and oriented x3 GI soft to palpation, non-tender and non-distended Inspection: gravid Narrative: cvx - 1/80/-2 Extremity normal to inspection Labs Labs Labs: Blood Type Pending Antibody Screen Pending Hct 32.5 % (37-47) L Hgb 10.9 g/dL (12.0-15.0) L See [facility] H&P Assessment & Plan (1) Severe pre-eclampsia, antepartum: COMMENT: @ 36&3 PLAN: Admit to L&D Severe preeclampsia - Severe range BP's - treating per protocol. Start magnesium sulfate. Labs normal other than elevated urine protein. Induction - discussed R/B/A and patient agrees to proceed with induction of labor. Intracervical burk placed. Will start pitocin in 2-3 hours. Pain - epidural as desired Adoption planned - social work involved EFW - 5-13 based on US today FWB - s/p BMZ#1 today and will repeat in 12 hours COVID negative Rapid GBS Routine care
[2021-12-30] MEDS: Labetalol (Prefilled) 20 MG/4 ML IV (19:26)
[2021-12-30] MEDS: Magnesium Sulfate 4gm/100mL 4 GM/100 ML IV.SOLN. IV (19:26)
[2021-12-30] MEDS: Magnesium Sulfate 20 GM/500 ML BAG 50 GM CONT INF (19:46)
[2021-12-30] MEDS: 0.9% Normal Saline Single 100 ML IV.SOLN. INTRA-UTER (19:55)
[2021-12-30] MEDS: Labetalol 100 MG Tablet PO (20:12)
[2021-12-30 23:25] LABS: Group B Strep DNA By PCR Negative (Negative); Internal Control PASS; Probe Check PASS; Specimen Processing Control PASS
[2021-12-30] MEDS: Oxytocin 30 units/NS 500 ml 30 UNITS/500 ML IV.SOLN IV (23:49)
[2021-12-31] VITALS (245 sets, daily range): BP systolic 95–144; BP diastolic 51–89; PULSE 72–95; RESP 16; TEMP 36.8–37.4; O2SAT 80–99
[2021-12-31] MEDS: LACTATED RINGERS 500 ML 999 ML IV (02:58)
[2021-12-31] MEDS: fentaNYL-bupivacaine (epidural) 100 ML BAG EPIDURAL ×4 (04:10→17:19)
[2021-12-31] MEDS: Magnesium Sulfate 20 GM/500 ML BAG 50 GM CONT INF ×2 (05:41→15:13)
[2021-12-31] MEDS: Betamethasone/Betamethasone 30 MG/5 ML Vial 12 MG IM (05:42)
[2021-12-31] MEDS: Acetaminophen 500 MG Tablet PO (06:14)
--- NOTE | 2021-12-31 07:15 | PCM.PN.OB ---
Subjective Subjective Patient comfortable with epidural Objective Data Objective Data Vital Signs: Vital Signs Temp Pulse Resp BP Pulse Ox O2 Del Method 98.4 F 85 16 106/68 98 Room Air 12/31/21 05:22 12/31/21 07:12 12/31/21 06:09 12/31/21 06:16 12/31/21 07:12 12/31/21 06:09 Oxygen Delivery Method Room Air Weight: 175 lb Body Mass Index (BMI) 33.0 Intake & Output: Intake and Output for Last 24 Hours 12/29/21 12/30/21 12/31/21 23:59 23:59 23:59 Intake Total 405 / 405 1505.93 / 1505.93 Output Total 550 / 550 900 / 900 Balance -145 / -145 605.93 / 605.93 Lab / Micro Data Result Diagrams: 12/30/21 16:20 12/30/21 16:20 Labs: Laboratory Results - last 24 hr 12/30/21 16:15: Blood Type B POSITIVE, Antibody Screen NEGATIVE 12/30/21 16:20: WBC 18.6 H, RBC 3.50 L, Hgb 10.9 L, Hct 32.5 L, MCV 92.9, MCH 31.1, MCHC 33.5, RDW Std Deviation 50.7 H, RDW Coeff of Amparo 14.9 H, Plt Count 298, MPV 10.6 12/30/21 16:20: U Random Total Protein 20.6 H, Urine Creatinine 47.20, Protein/Creatinin Ratio 436 H 12/30/21 16:20: Creatinine 0.60, Est GFR (MDRD) Af Amer 147, Est GFR (MDRD) Non-Af 122, Uric Acid 4.8, AST 18, ALT 20 12/30/21 20:42: Group B Strep DNA Negative, Specimen Comment Not Reportable Micro: Microbiology 12/30/21 17:40 Nasal Secretion SARS-CoV-2 Antigen (Rapid) - Final Physical Exam Narrative: cvx - 4/80/-2 AROM clear fluid, FSE & IUPC placed NST FHR Rate Baby A Baseline: 120 Variability:: Minimal and Moderate Accelerations:: 15 x 15 (occasional) Decelerations:: None FHR Category:: Category II Uterine Activity:: Q 3-5 minutes Assessment & Plan (1) Severe pre-eclampsia, antepartum: COMMENT: @ 36&4 PLAN: Continue magnesium sulfate & labetalol bid Continue induction with pitocin & now s/p AROM Plan of care reviewed with patient
--- NOTE | 2021-12-31 10:46 | NURSING ---
10 am trandate held d/t bp of 110/57.
[2021-12-31] MEDS: Ondansetron 4 MG/2 ML Vial IV (15:25)
[2021-12-31] MEDS: Oxytocin 30 units/NS 500 ml 30 UNITS/500 ML IV.SOLN 334 UNITS IV (20:07)
--- NOTE | 2021-12-31 20:27 | EX.PCM.OBRPT ---
Maternal Data Information Final LUIS: 01/[birth year]/22 Gestational age: 36&4 Vaginal Delivery Maternal Presentation Maternal Presentation: Medically Indicated Induction Type of Induction: Pitocin, Osorio Bulb and Amniotomy Operative Information Date of Procedure: 12/31/21 Pre-Operative Diagnosis: (1) Severe preeclampsia Post-Operative Diagnosis: Same Surgery / Procedure Performed: Spontaneous Vaginal Delivery Type of Anesthesia: Epidural Drain: Osorio to straight drain Estimated Blood Loss: 500ml Findings Description of Procedure: Patient prepped & draped when C/C/+2. She pushed well to deliver the head. head gently guided to allow delivery of anterior and posterior shoulders. No excess traction placed on head. Body delivered and 3VC clamped & cut in delayed fashion. Placenta delivered with gentle traction and good uterine tone obtained. Presentation: ANISH Amniotic Membrane Rupture Type: Artificial Amniotic Fluid Description: Clear Placental Delivery Description: Expressed Placenta Disposition: [facility] Specimen(s) Removed: Placenta Cord Vessel Description: 3 Vessels Cord Entanglement: Around neck x 1, loose Nuchal Cord Compression: Without compression A Gender: Male (Momin) (1 minute): 8 (5 minute): 9 Delayed Cord Clamping: Yes Post Vaginal Delivery Medications Given After Delivery: IV Pitocin Episiotomy Description: None Laceration: 1st degree (bilateral vaginal - repaired with 3-0 vicryl) Complication Complications: None
[2021-12-31] MEDS: miSOPROStol 200 MCG Tablet 1000 MCG RC (20:37)
[2021-12-31] MEDS: Ibuprofen 600 MG Tablet PO (22:54)
[2022-01-01] VITALS (19 sets, daily range): BP systolic 109–145; BP diastolic 58–74; PULSE 70–93; RESP 14–18; TEMP 36–37.5; O2SAT 95–98
[2022-01-01] MEDS: Magnesium Sulfate 20 GM/500 ML BAG 50 GM CONT INF ×2 (01:06→10:02)
[2022-01-01] MEDS: Labetalol 200 MG Tablet PO ×2 (08:00→13:56)
--- NOTE | 2022-01-01 10:41 | NURSING ---
Pt states to shut off the magnesium she is refusing to take it anymore, we contacted who attempted to talk on the phone with the pt. The pt states shut off the magnesium I'm not taking it anymore. I did shut off the magnesium pump. The pt was on the phone with the pt handed nursing back the phone and states she is not listening to me I'm done talking to her. Nursing spoke to . This nurse spoke to the charge nurse Cande FUENTES and she has been updated regarding the situation.
[2022-01-01] MEDS: 0.9% Saline Lock 10 ML Syringe IV (11:02)
--- NOTE | 2022-01-01 12:16 | PCM.PN.OB ---
Subjective Subjective Patient states she feels awful on the magnesium. She demanded the magnesium be stopped by RN or would rip out her IV. Patient states she just wants to go home and sleep in her own bed. Denies headaches or blurry vision but just feels tired & off since the magnesium was started. Objective Data Objective Data Vital Signs: Vital Signs Temp Pulse Resp BP Pulse Ox O2 Del Method 97.2 F L 70 16 109/59 L 95 Room Air 01/01/22 11:43 01/01/22 11:43 01/01/22 11:43 01/01/22 11:43 01/01/22 09:01 01/01/22 09:01 Oxygen Delivery Method Room Air Weight: 175 lb Body Mass Index (BMI) 33.0 Intake & Output: Intake and Output for Last 24 Hours 12/30/21 12/31/21 01/01/22 23:59 23:59 23:59 Intake Total 405 / 405 3114.33 / 3114.33 2211.26 / 2211.26 Output Total 550 / 550 3450 / 3450 3500 / 3500 Balance -145 / -145 -335.67 / -335.67 -1288.74 / -1288.74 Lab / Micro Data Result Diagrams: 12/30/21 16:20 12/30/21 16:20 Micro: Microbiology 12/30/21 Unknown Genital vaginal Group B Streptococcus Culture - Preliminary Group B Beta Streptococcus is not isolated. 12/30/21 17:40 Nasal Secretion SARS-CoV-2 Antigen (Rapid) - Final Physical Exam Const alert, oriented x3 and no apparent distress HEENT normocephalic GI soft to palpation, non-tender and non-distended GI Narrative: fundus firm, mid & below umbilicus Extremity normal to inspection and no calf tenderness Assessment & Plan (1) Severe pre-eclampsia, antepartum: COMMENT: PPD#1 PLAN: Patient counseled extensively (both on the phone & again in person) on the importance of magnesium therapy for 24 hours PP to prevent seizures. She refuses additional magnesium therapy and is aware that she is at risk of seizures & other possible adverse events. She also requests discharge tonight which I explained would not be possible as her BP will likely continue to increase for 48 hours PP. Also reviewed risks of uncontrolled hypertension including stroke & as well as other possible adverse events. Patient counseled extensively and explained that my concern is her health & safety. She agrees tostay the rest of the day today and may agree to stay 1 more night. Will start procardia XL 30mg to help control BP as soon as possible. All questions answered. Plan for routine PP care
[2022-01-01] MEDS: NIFEdipine 30 MG Tablet PO (12:25)
[2022-01-01] MEDS: Ibuprofen 600 MG Tablet PO (13:55)
--- NOTE | 2022-01-01 14:45 | NURSING ---
Pt left facility against medical advice Pt was receptive to the education I did give her regarding pre eclampsia, I also printed out when she was last medicated and what the medication names and dosages are and when they are due to be taken again. was updated that the pt left and the above information was given to her. states she did attempt to call in prescriptions for the pt but the pharmacy the pt has listed closes at 3pm. I then attempted to call the pt to tell her, I left a message on the pt's voicemail explaining this and to return our call and explained on the vm we would possibly need to use a different pharmacy.
--- NOTE | 2022-01-01 15:10 | NURSING ---
The pt returned our phone call and we updated her pharmacy info. updated at this time as well.
== END 2022-01-01 14:10 | disposition left against medical advice (07) | DRG 807 ==
LOC: WPOUT 19:22 → WP 19:22
PROVIDERS: Admitting Provider Obstetrics & Gynecology; PCP Family Medicine; Visit Provider Obstetrics & Gynecology
DX: O14.14 Severe pre-eclampsia complicating childbirth (principal); Z37.0 Single live birth; O99.344 Other mental disorders complicating childbirth; F17.210 Nicotine dependence, cigarettes, uncomplicated; O99.334 Smoking (tobacco) complicating childbirth; Z20.822 Contact with and (suspected) exposure to COVID-19; Z79.899 Other long term (current) drug therapy; F98.8 Other specified behavioral and emotional disorders with onset usually occurring in childhood and adolescence; Z3A.36 36 weeks gestation of pregnancy
CPT/HCPCS: 59025; 59050; 82565; 82570; 84156; 84450; 84460; 84550; 85027; 86850; 86900; 86901; 87081; 87653; 87811; 99218; J7120; A4216; G0378; J0702; J2405